=== PATIENT | female | born 1995 | race Caucasian/White ===

== ENCOUNTER 2019-12-24 19:08 | Emergency (ER) | payer OTHER ==
[~2019-12-24] VITALS: Ht 167.6 cm; Wt 74.5 kg
[2019-12-24 21:20] VITALS: BP 121/67
== END 2019-12-24 21:22 | disposition home or self-care (01) ==
LOC: ER 19:08
DX: L03.032 Cellulitis of left toe (principal); Z88.0 Allergy status to penicillin; Z98.890 Other specified postprocedural states
CPT/HCPCS: 73630; 99283

== ENCOUNTER 2021-03-20 15:03 | Emergency (ER) | payer MEDICAID, OTHER ==
[~2021-03-20] VITALS: Ht 167.6 cm; Wt 82.0 kg
[2021-03-20 15:12] VITALS: BP 113/67
[2021-03-20] MEDS ORDERED: P50 MT (15:19)
[2021-03-20] MEDS ORDERED: PERM60CR4 TP (15:19)
== END 2021-03-20 15:55 | disposition home or self-care (01) ==
LOC: ER 15:03
DX: R21 Rash and other nonspecific skin eruption (principal); Z88.0 Allergy status to penicillin
CPT/HCPCS: 99283

== ENCOUNTER 2021-05-19 08:22 | Emergency (ER) | payer MEDICAID ==
[~2021-05-19] VITALS: Ht 167.6 cm; Wt 87.0 kg
[~2021-05-19 08:22] MED LIST: P50 MT; PERM60CR4 TP
[2021-05-19] MEDS ORDERED: CEFTRIAXONE SODIUM 500 MG/VIAL IM ONE (09:00)
[2021-05-19] MEDS ORDERED: DOXYCYCLINE HYCLATE 100MG CAPSULE PO ONE (09:00)
[2021-05-19 09:33] LABS: CLARITY URINE CLEAR (CLEAR); COLOR URINE YELLOW (YELLOW); KETONES URINE NEGATIVE (NEGATIVE); LEUKOCYTE ESTERASE URINE 2+ (NEGATIVE); NITRITE URINE NEGATIVE (NEGATIVE); OCCULT BLOOD URINE NEGATIVE (NEGATIVE); PH URINE 6.5 (4.5-8.0); PROTEIN URINE NEGATIVE (NEGATIVE); SPECIFIC GRAVITY URINE 1.021 (1.005-1.030)
[2021-05-19] MEDS ORDERED: DOXY100T2 PO (09:58)
[2021-05-19 10:19] VITALS: BP 112/76
[2021-05-21 04:06] LABS: NEISSERIA GONORRHOEAE NAA Negative (Negative)
== END 2021-05-19 10:19 | disposition home or self-care (01) ==
LOC: ER 08:48
DX: A54.9 Gonococcal infection, unspecified (principal); A56.8 Sexually transmitted chlamydial infection of other sites; Z88.0 Allergy status to penicillin
CPT/HCPCS: 81003; 81025; 87210; 87491; 87591; 96372; 99283; J0696; Z7610

== ENCOUNTER 2021-05-29 09:59 | Emergency (ER) | payer MEDICAID ==
[~2021-05-29] VITALS: Ht 167.6 cm; Wt 86.0 kg
[~2021-05-29 09:59] MED LIST changes: +DOXY100T2 PO
[2021-05-29 10:16] VITALS: BP 117/64
[2021-05-29] MEDS ORDERED: SILVER SULFADIAZINE 1% CREAM 25GM TOP ONE (11:15)
[2021-05-29] MEDS ORDERED: DOXY100C2 MT (11:19)
== END 2021-05-29 11:34 | disposition home or self-care (01) ==
LOC: ER 09:59
DX: T30.0 Burn of unspecified body region, unspecified degree (principal); T79.9XXA Unspecified early complication of trauma, initial encounter; Z88.0 Allergy status to penicillin; Z98.890 Other specified postprocedural states
CPT/HCPCS: 16000; 81025; 99283; Z7610

== ENCOUNTER 2021-06-13 16:55 | Emergency (ER) | payer MEDICAID, OTHER ==
[~2021-06-13] VITALS: Ht 167.6 cm; Wt 86.0 kg
[~2021-06-13 16:55] MED LIST changes: +DOXY100C2 MT; -DOXY100T2 PO
[2021-06-13 17:13] VITALS: BP 129/67
[2021-06-14] MEDS ORDERED: P50 MT (18:05)
[2021-06-14] MEDS ORDERED: CETI10TA6 MT (18:05)
[2021-06-14] MEDS ORDERED: FAMO40TA70 MT (18:27)
== END 2021-06-13 20:21 | disposition left against medical advice (07) ==
LOC: ER 16:55
DX: Z53.21 Procedure and treatment not carried out due to patient leaving prior to being seen by health care provider (principal); Z88.0 Allergy status to penicillin

== ENCOUNTER 2021-06-14 15:23 | Emergency (ER) | payer OTHER ==
[~2021-06-14] VITALS: Ht 167.6 cm; Wt 86.0 kg
[2021-06-14 15:27] VITALS: BP 106/66
[2021-06-14] MEDS ORDERED: CETIRIZINE 10MG TABLET PO SCH (17:19)
[2021-06-14] MEDS ORDERED: FAMOTIDINE 20MG TABLET PO SCH (17:19)
[2021-06-14] MEDS ORDERED: PREDNISONE 20MG TABLET PO ONE (17:30)
[2021-06-14] MEDS ORDERED: CETI10TA6 MT (18:05)
[2021-06-14] MEDS ORDERED: P50 MT (18:05)
[2021-06-14] MEDS ORDERED: FAMO40TA70 MT (18:27)
== END 2021-06-14 18:34 | disposition home or self-care (01) ==
LOC: ER 15:23
DX: L27.0 Generalized skin eruption due to drugs and medicaments taken internally (principal); T36.4X5A Adverse effect of tetracyclines, initial encounter; Y92.018 Other place in single-family (private) house as the place of occurrence of the external cause
CPT/HCPCS: 99284; J7512

== ENCOUNTER 2021-07-02 02:55 | Emergency (ER) | payer MEDICAID, OTHER ==
[~2021-07-02] VITALS: Ht 170.2 cm; Wt 80.0 kg
[~2021-07-02 02:55] MED LIST changes: +CETI10TA6 MT; -DOXY100C2 MT; +DOXY100C5 MT; +FAMO40TA70 MT
[2021-07-02] MEDS ORDERED: IBUPROFEN 600MG TABLET PO ONE (04:30)
[2021-07-02] MEDS ORDERED: SULF1TAB48 MT (04:31)
[2021-07-02] MEDS ORDERED: CEPH500C2 MT (04:31)
[2021-07-02 05:00] VITALS: BP 129/71
== END 2021-07-02 05:28 | disposition home or self-care (01) ==
LOC: ER 02:55
DX: L03.221 Cellulitis of neck (principal); Z88.0 Allergy status to penicillin; Z98.890 Other specified postprocedural states
CPT/HCPCS: 99282

== ENCOUNTER 2021-11-09 11:26 | Emergency (ER) | payer MEDICAID ==
[~2021-11-09] VITALS: Ht 167.6 cm; Wt 80.0 kg
[~2021-11-09 11:26] MED LIST changes: +CEPH500C2 MT; +SULF1TAB48 MT
[2021-11-09 11:45] VITALS: BP 136/88
[2021-11-09 13:07] LABS: CLARITY URINE CLEAR (CLEAR); COLOR URINE YELLOW (YELLOW); KETONES URINE NEGATIVE (NEGATIVE); LEUKOCYTE ESTERASE URINE 3+ (NEGATIVE); NITRITE URINE NEGATIVE (NEGATIVE); OCCULT BLOOD URINE NEGATIVE (NEGATIVE); PROTEIN URINE NEGATIVE (NEGATIVE); SPECIFIC GRAVITY URINE 1.021 (1.005-1.030); UROBILINOGEN URINE 0.2 E.U./dL (0.2-1.0)
[2021-11-09] MEDS ORDERED: DOXY100C5 MT (14:35)
[2021-11-09] MEDS ORDERED: AZITHROMYCIN 500 MG TABLET PO ONE (14:45)
[2021-11-09] MEDS ORDERED: GENTAMICIN SULF 40MG/ML 2ML VIAL IM ONE (14:45)
[2021-11-13 04:07] LABS: NEISSERIA GONORRHOEAE NAA Positive (Negative)
== END 2021-11-09 15:23 | disposition home or self-care (01) ==
LOC: ER 11:26
DX: Z11.3 Encounter for screening for infections with a predominantly sexual mode of transmission (principal); N39.0 Urinary tract infection, site not specified; Z88.0 Allergy status to penicillin; Z79.899 Other long term (current) drug therapy; Z98.890 Other specified postprocedural states
CPT/HCPCS: 81003; 81025; 87077; 87086; 87491; 87591; 96372; 99283; J1580; Z7610